=== PATIENT | male | born 1975 | race Two or more races ===

== ENCOUNTER 2024-08-06 11:07 | Outpatient (CLI) | payer OTHER | END 2024-08-06 11:18 | disposition home or self-care (01) | LOC: SONOGRAMA 11:07 | PROVIDERS: ATTEND Physical Medicine & Rehabilitation | DX: M75.32 Calcific tendinitis of left shoulder (principal); M75.102 Unspecified rotator cuff tear or rupture of left shoulder, not specified as traumatic ==